=== PATIENT | female | born 1955 | race Caucasian/White ===

== ENCOUNTER → 2017-05-12 | Outpatient (CLI) | payer BC ==
--- NOTE | 2017-05-15 08:07 | MM ---
Reason for exam: follow-up at short interval from prior study. Last mammogram was performed 5 months ago. History: Patient is postmenopausal. Benign excisional biopsy of the right breast, November 09, 2004. Benign excisional biopsy of the right breast, March 27, 2002. Physical Findings: Nurse did not find any significant physical abnormalities on exam. MG Diagnostic Mammo LT w CAD CC, MLO, and ML view(s) were taken of the left breast. Prior study comparison: December 20, 2016, mammogram, performed at [facility]. November 25, 2016, mammogram, performed at [facility]. Nodular density left breast persists. Ultrasound is recommended. These results were verbally communicated with the patient and result sheet given to the patient on 05/12/17. ASSESSMENT: Incomplete: need additional imaging evaluation, BI-RAD 0 RECOMMENDATION: Ultrasound of the left breast.
--- NOTE | 2017-05-15 08:09 | USB ---
Reason for exam: additional evaluation requested from abnormal screening. History: Patient is postmenopausal. Benign excisional biopsy of the right breast, November 09, 2004. Benign excisional biopsy of the right breast, March 27, 2002. US Breast LT Left breast ultrasound includes all four quadrants, the retroareolar region and axilla. Finding demonstrates a 2mm questionable papilloma at the posterior nipple. These results were verbally communicated with the patient and result sheet given to the patient on 05/12/17. ASSESSMENT: Suspicious, BI-RAD 4 RECOMMENDATION: Ultrasound core biopsy of the left breast. Called with mammographic findings and has scheduled an appointment for the patient for 05/26/17 at 2:[address] Palma. PRELIMINARY REPORT CALLED AND FAXED TO DR. PALMA ON 05/15/17.
== END | disposition home or self-care (01) ==
LOC: RADMAMWWP 13:13
PROVIDERS: ATTEND Surgery
DX: R92.8 Other abnormal and inconclusive findings on diagnostic imaging of breast (principal)
CPT/HCPCS: 77065

== ENCOUNTER → 2017-06-20 | Day surgery (SDC) | payer BC ==
[2017-06-20 12:37] VITALS: TEMP 98.1; BMI 25.7
[2017-06-20 14:55] VITALS: BP 117/88; PULSE 72; RESP 15
--- NOTE | 2017-06-20 15:50 | USB ---
EXAMINATION TYPE: US biopsy breast VAD LT, MG diagnostic mammo LT wo CAD DATE OF EXAM: 06/20/2017 CLINICAL HISTORY: 61-year-old female [id number] Breast lump. TECHNIQUE: Ultrasound guided core biopsy of subareolar left breast. COMPARISON: 05/12/2017 FINDINGS: The procedure of ultrasound guided core biopsy was explained to the patient. Benefits, alternatives, and risks were discussed. An informed consent was then obtained. The patient was placed in supine positioning for imaging and for the procedure. The overlying skin was prepped and draped in usual sterile fashion. Lidocaine buffered with bicarbonate was used as anesthetic into the skin and subcutaneous tissue up to area of concern in the subareolar left breast. The small intraductal lesion was identified and targeted for biopsy. Under ultrasound guidance, a 13-gauge vacuum assisted Mammotome Elite biopsy gun device was used to obtain 4 core samples. Following this, a ribbon clip was left in lesion. The patient tolerated the procedure well without any immediate complication. The patient was kept in the radiology department for short stay after the procedure and then discharged home in stable condition. Postprocedure mammogram shows clip in the subareolar position. IMPRESSION: Successful, uncomplicated ultrasound guided core biopsy of the small subareolar intraductal lesion in the left breast, full pathology results to follow. Pathology Results: Benign BREAST, LEFT, CORE BIOPSY: FIBROCYSTIC CHANGES INCLUDING CYSTS, FIBROSIS, APOCRINE METAPLASIA, PAPILLARY USUAL TYPE DUCTAL HYPERPLASIA, COLUMNAR CELL HYPERPLASIA AND CALCIFICATIONS. Recommendation Follow up ultrasound of the left breast in 6 months. VEE
== END ==
LOC: RADUSWWP 11:59
PROVIDERS: ATTEND Surgery
DX: N60.32 Fibrosclerosis of left breast (principal); N60.82 Other benign mammary dysplasias of left breast; N60.92 Unspecified benign mammary dysplasia of left breast; R92.1 Mammographic calcification found on diagnostic imaging of breast
CPT/HCPCS: 88305; 77065; 19083; A4648; J2001

== ENCOUNTER → 2017-06-29 | Outpatient (CLI) | payer BC ==
--- NOTE | 2017-06-29 15:25 | P.PN ---
Progress Note - Text Progress Note Date: 06/29/17 The patient is a 61-year-old white female who presents with a status post ultrasound-guided core biopsy of the left breast. Pathology is benign. The patient states that she has some tenderness in the left breast. She had 28 after the biopsy. The biopsy site itself is nontender. She has no fever or chills. I have had a long discussion with the patient regarding the pathology results and the need for a repeat radiographic study in 6 months. Physical examination: Left breast: Some excoriation in the upper inner quadrant where the patient had T The puncture site from the biopsy is clean and dry and well healed No ecchymosis or erythema Lungs clear Heart regular rate and rhythm Impression/plan: 1. left breast core biopsy fibrocystic changes 2. Repeat left breast mammogram and ultrasound in 6 months time with appointment CC: Dr. Meneses
== END | disposition home or self-care (01) ==
LOC: WWCBREAST 14:59
PROVIDERS: ATTEND Surgery
DX: N64.4 Mastodynia (principal); Z53.9 Procedure and treatment not carried out, unspecified reason

== ENCOUNTER → 2018-02-20 | Outpatient (CLI) | payer BC ==
--- NOTE | 2018-02-22 10:26 | MM ---
Reason for exam: follow-up at short interval from prior study. Last mammogram was performed 8 months ago. History: Patient is postmenopausal. Benign US biopsy breast VAD LT of the left breast, June 20, 2017. Benign excisional biopsy of the right breast, November 09, 2004. Benign excisional biopsy of the right breast, March 27, 2002. Physical Findings: Nurse did not find any significant physical abnormalities on exam. MG 3D Diag Mammo W/Cad EVELYN Bilateral CC and MLO view(s) were taken. Prior study comparison: June 20, 2017, left breast MG diagnostic mammo LT wo CAD. May 12, 2017, left breast MG diagnostic mammo LT w CAD. There are scattered fibroglandular densities. Left chronic nodularity. Left central nodularity is smaller, subareolar focal asymmetry is unchanged from six months ago after biopsy. Right nodularity subareolar region slightly more pronounced, becomes less defined on 3D These results were verbally communicated with the patient and result sheet given to the patient on 02/20/18. ASSESSMENT: Incomplete: need additional imaging evaluation, BI-RAD 0 RECOMMENDATION: Ultrasound of both breasts.
--- NOTE | 2018-02-22 10:46 | USB ---
History: Patient is postmenopausal. Benign US biopsy breast VAD LT of the left breast, June 20, 2017. Benign excisional biopsy of the right breast, November 09, 2004. Benign excisional biopsy of the right breast, March 27, 2002. Physical Findings: Nurse did not find any significant physical abnormalities on exam. US Breast Limited BILAT Left complete breast ultrasound includes all four quadrants, the retroareolar region and axilla. Finding demonstrates a 6 x 2 mm oval area subareolar region with suggestion of an indwelling clip previously measuring 4 x 2 mm, a 6 month follow up is recommended. Right limited breast ultrasound including focal area of concern, retroareolar and axilla demonstrates a 0.8 x 0.5 x 0.6 irregular shaped solid hypoechoic lesion at 12 o'clock, this is suspicious. ASSESSMENT: Suspicious, BI-RAD 4 RECOMMENDATION: Ultrasound core biopsy of the right breast. Called Dr. Palma with mammographic findings and has scheduled an appointment for the patient for 03/09/18 at 11:00am with Dr. Palma for consultation only. Right ultrasound core biopsy is scheduled for 03/12/18 at 2:00pm. PRELIMINARY REPORT CALLED AND FAXED TO DR. PALMA ON
== END | disposition home or self-care (01) ==
LOC: RADMAMWWP 14:45
PROVIDERS: ATTEND Surgery
DX: R92.8 Other abnormal and inconclusive findings on diagnostic imaging of breast (principal)
CPT/HCPCS: 77062; 77066

== ENCOUNTER → 2018-03-09 | Outpatient (CLI) | payer BC ==
[2018-03-09 11:23] VITALS: BP 155/75; PULSE 90; RESP 18; TEMP 97.7; BMI 26.2
--- NOTE | 2018-03-09 11:46 | P.GSHP ---
History of Present Illness H&P Date: 03/09/18 Chief Complaint: abnormal ultrasound right breast Maryanne is a 62-year-old white female who comes in for breast evaluation. She is status post bilateral breast biopsies in the past each time the biopsies have been benign. Additionally she she had last year a needle biopsy of the left breast which was also benign. The patient is status post bilateral mammogram on 1818. After this was recommended that she have bilateral breast ultrasounds performed. Ultrasounds were performed on the same day and the right breast revealed a 8 mm irregular shaped solid lesion at 12:00 for which core biopsy was recommended. On the left breast no lesions of concern recommended biopsy were noted. The patient does not feel anything of concern in her breast. She has no nipple discharge of concern. She has had no recent trauma or infections of her breast. Family History: negative Hormonal History: Menarche: 16 Pregnancies: 2, first at the age of 32, 2 live births, did not breast-feed Menopause: Surgical hysterectomy which was total abdominal hysterectomy in her late 40s control pills: Approximately 1 year Hormones: Negative Past Surgical History 1. Right shoulder rotator cuff 2. Bilateral breast biopsies 3. Total abdominal hysterectomy 4. Tubal ligation 5. finger surgery Past Medical History: none Social History: smoke: 1/2 PPD for 45 years Alcohol: Weekends a few beers Drugs:negative - Constitutional Constitutional: Denies chills, Denies fever - EENT Eyes: denies blurred vision, denies pain Ears: deny: decreased hearing, tinnitus Ears, nose, mouth and throat: Denies headache, Denies sore throat - Breasts Breasts: bilateral: as per HPI - Cardiovascular Comment: irregular heart beat, follows with cardiology Cardiovascular: Denies chest pain, Denies shortness of breath - Respiratory Comment: smoker Respiratory: Denies cough, Denies 7 - Gastrointestinal Gastrointestinal: Denies abdominal pain, Denies diarrhea, Denies nausea, Denies vomiting - Genitourinary (Female) Genitourinary: Denies dysuria, Denies hematuria - Menstruation Menstruation: Reports post hysterectomy - Musculoskeletal Comment: back pain Musculoskeletal: Denies myalgias - Integumentary Integumentary: Denies pruritus, Denies rash - Neurological Neurological: Denies numbness, Denies weakness - Psychiatric Psychiatric: Denies anxiety, Denies depression - Endocrine Endocrine: Denies fatigue, Denies weight change - Hematologic/Lymphatic Comment: baby aspirin - Allergic/Immunologic Allergic/Immunologic: Reports as per HPI Past Medical History Past Medical History: Hyperlipidemia, Hypertension Additional Past Medical History / Comment(s): "irregular heart beat that caused elevated blood pressure" per pt History of Any Multi-Drug Resistant Organisms: None Reported Past Surgical History: Hysterectomy, Orthopedic Surgery Additional Past Surgical History / Comment(s): benign excisional biopsy right breast nov 09, 2004. benign excisional biopsy right breast mar 27, 2002. Past Anesthesia/Blood Transfusion Reactions: No Reported Reaction Past Psychological History: No Psychological Hx Reported Smoking Status: Current every day smoker Past Alcohol Use History: Occasional Past Drug Use History: None Reported Medications and Allergies Home Medications Medication Instructions Recorded Confirmed Type Aspirin 81 mg PO DAILY 06/08/17 02/27/18 History Metoprolol Tartrate 25 mg PO DAILY 06/08/17 02/27/18 History Simvastatin [Zocor] 20 mg PO DAILY 06/08/17 02/27/18 History Allergies Allergy/AdvReac Type Severity Reaction Status Date / Time No Known Allergies Allergy Verified 03/09/18 11:30 Surgical - Exam Vital Signs Temp Pulse Resp BP Pulse Ox 97.7 F 90 18 155/75 100 03/09/18 11:10 03/09/18 11:10 03/09/18 11:10 03/09/18 11:10 03/09/18 11:10 - General well developed, well nourished, no distress - Eyes normal ocular movement - ENT no hearing loss, no congestion - Neck no masses, trachea midline - Respiratory normal respiratory effort, clear to auscultation - Cardiovascular Rhythm: regular Heart Sounds: normal: S1, S2 - Abdomen Abdomen: soft, non tender, no guarding, no rigid, no rebound - Integumentary tattoo over left breast - Neurologic no disoriented, no combative - Musculoskeletal normal gait - Psychiatric oriented to time, oriented to person, oriented to place, speech is normal, memory intact Breast examination: Right breast: Multi-positional exam well-healed scars from prior biopsy no dominant masses or nodules of concern and no nipple discharge or changes of concern Right axilla: No adenopathy of concern Left breast : tattoo over the left chest wall, multi-positional exam no dominant masses or notches of concern Left axilla: No adenopathy of concern Results Mammogram and ultrasound reviewed with Dr. Louis Assessment and Plan Assessment: Impression: 1. Radiographic abnormality of the right breast revealing a 0.8 cm irregular solid lesion at 12:00 for which ultrasound core biopsy is recommended 2. Fibrocystic breast changes 3. Irregular heartbeat for which patient takes metipranolol 4. Back pain Plan: 1. Recommend ultrasound core biopsy of area of concern in the right breast 2. Medical management of medical conditions 3. Follow-up after ultrasound core biopsy CC: Dr. Meneses
== END | disposition home or self-care (01) ==
LOC: WWCWWP 10:47
PROVIDERS: ATTEND Surgery
DX: Z53.9 Procedure and treatment not carried out, unspecified reason (principal)

== ENCOUNTER → 2018-04-09 | Day surgery (SDC) | payer BC ==
[2018-04-09 11:26] VITALS: RESP 16; BMI 26.2
[2018-04-09 13:21] VITALS: BP 116/73; PULSE 65; TEMP 98.3
--- NOTE | 2018-04-09 16:46 | USB ---
EXAMINATION TYPE: US biopsy breast VAD RT DATE OF EXAM: 04/09/2018 CLINICAL HISTORY: R92.8 ABN MAMMO. TECHNIQUE: Ultrasound guided core biopsy of right breast. COMPARISON: Ultrasound 02/20/2018 FINDINGS: The procedure of ultrasound guided core biopsy was explained to the patient. Benefits, alternatives, and risks were discussed. An informed consent was then obtained. Timeout was performed. The patient was placed in supine positioning for imaging and for the procedure. The overlying skin was prepped and draped in usual sterile fashion. Lidocaine buffered with bicarbonate was used as anesthetic into the skin and subcutaneous tissue up to area of concern in the right breast. A tomas was made with surgical scalpel. Under ultrasound guidance, a 12-gauge vacuum assisted biopsy gun device was used to obtain 5 core samples. Following this, a biopsy wing clip was left in lesion. Patient tolerated procedure well. Patient was transferred to mammography for postprocedure replacement mammogram. Patient was released in stable condition having tolerated procedure well. IMPRESSION: 1. Successful ultrasound-guided core biopsy right breast. Recommendations: 1. Recommendations are pending pathology results. Pathology Results: Malignant RIGHT BREAST, ULTRASOUND GUIDED CORE BIOPSY: Microinvasive moderately differentiated ductal carcinoma (invasive tumor measures less than 1 mm). See Surgical Pathology Cancer Case Summary and Comment. Recommendation Surgical consult of the right breast. VEE
--- NOTE | 2018-04-10 08:14 | MM ---
Reason for exam: additional evaluation requested from abnormal screening. Last mammogram was performed 2 months ago. History: Patient is postmenopausal. Benign US biopsy breast VAD LT of the left breast, June 20, 2017. Benign excisional biopsy of the right breast, November 09, 2004. Benign excisional biopsy of the right breast, March 27, 2002. MG Diagnostic Mammo RT Wo CAD CC and MLO view(s) were taken of the right breast. Prior study comparison: February 20, 2018, bilateral MG 3d diag mammo w/cad EVELYN. June 20, 2017, left breast MG diagnostic mammo LT wo CAD. ASSESSMENT: Post procedure mammogram for marker placement RECOMMENDATION: Ultrasound of the right breast in 6 months. PENDING PATHOLOGY RESULTS.
== END | disposition home or self-care (01) ==
LOC: RADUSWWP 11:06
PROVIDERS: ATTEND Surgery
DX: C50.911 Malignant neoplasm of unspecified site of right female breast (principal)
CPT/HCPCS: 88305; 88342; 88341; 77065; 19083; A4648; J2001

== ENCOUNTER → 2018-04-19 | Outpatient (CLI) | payer BC ==
[2018-04-19 13:50] VITALS: BP 136/87; PULSE 99; RESP 18; TEMP 98.6; BMI 26.6
--- NOTE | 2018-04-20 09:54 | P.PN ---
Subjective Progress Note Date: 04/20/18 Principal diagnosis: Microinvasive right breast cancer Maryanne is a 62-year-old white female who is status post right prostatectomy core biopsy on [id number]. Her pathology revealed a microinvasive right breast cancer which was ER/WA positive and HER-2 negative. She is overall grade 2 and clinical no evidence of lymph node involvement. The patient has no family history of any cancer and is very concerned that the pathology was correct. She has requested if possible that a second opinion be obtained on the pathology results. We have contacted [facility] and are in the process of trying to obtain this information for the patient. The patient does not want to have the second opinion if insurance does not cover. The patient has no complaints directly related to the biopsy. Of concern is the fact that the lesion of interest is under the nipple periareolar complex. The lesion although close appears to be amiable to lumpectomy. I have had a long discussion with the patient as well as a second discussion which she brought back her regarding the biopsy results. We have talked about treatment options which would include possible lumpectomy, radiation therapy, sentinel node biopsy possible axillary node dissection. The concerned that the anterior margin may be very close to the periareolar complex and may necessitate a central lumpectomy with loss of the nipple areolar complex. The patient also was given the option of a mastectomy plus or minus immediate reconstruction. Objective - Vital Signs Vital signs: Vital Signs Temp 98.6 F 04/19/18 13:45 Pulse 99 04/19/18 13:45 Resp 18 04/19/18 13:45 BP 136/87 04/19/18 13:45 Pulse Ox 96 04/19/18 13:45 Intake & Output 04/19/18 04/20/18 04/20/18 18:59 06:59 18:59 Weight 67.132 kg - Exam BMI 26.6 - Constitutional General appearance: Present: average body habitus - EENT Eyes: Present: EOMI ENT: Present: hearing grossly normal - Neck Neck: Present: normal ROM - Respiratory Respiratory: - Cardiovascular Rhythm: regular Heart sounds: - Integumentary Integumentary: Present: normal turgor - Musculoskeletal Musculoskeletal: Present: gait normal - Psychiatric Psychiatric: Present: A&O x's 3, appropriate affect - Additional findings Additional findings: Core biopsy site right breast clean and dry Evidence of infection Mild ecchymosis Assessment and Plan Assessment: Impression: 1. Microinvasive cancer right breast 2. Fibrocystic breast changes 3. Irregular heartbeat 4. Back pain 5. Patient with concerns regarding pathology results 6. Irregular radiographic lesion on ultrasound I had a very extensive conversation lasting approximately 50 minutes with the patient and then with the patient and her who came back for a second visit regarding pathology findings and treatment options. The option of lumpectomy with radiation therapy, sentinel node biopsy, possible axillary node dissection, mastectomy plus or minus reconstruction well discussed with the patient and her . Additionally the patient is very concerned that because she has no family history of cancer that the pathologist may flatus and air and is requesting a second opinion on the pathology. However she only wants a second opinion if insurance will cover this. We are trying to find this information for the patient. At the present time the patient wishes to proceed with lumpectomy and sentinel node biopsy in the near future. She understands risks and benefits including bleeding and infection reaction to the anesthetic. She understands margins were positive, recommended that she have a repeat excision. She also understands lesion is in close proximity to the nipple areolar complex and the distort the area as well as have decreased sensation to this area. Plan: 1. We are attempting to see if her insurance will cover a second opinion on pathology results 2. Case to be presented at tumor board 3. Option of lumpectomy with sentinel node biopsy is patient's first choice at this time 4. Medical management of medical conditions CC:
== END | disposition home or self-care (01) ==
LOC: WWCWWP 13:35
PROVIDERS: ATTEND Surgery
DX: Z53.9 Procedure and treatment not carried out, unspecified reason (principal)

== ENCOUNTER → 2018-05-24 | Outpatient (CLI) | payer BC ==
[2018-05-24 13:23] VITALS: BP 121/85; PULSE 77; RESP 16; TEMP 98.2; BMI 26.5
--- NOTE | 2018-05-24 14:13 | P.GSHP ---
History of Present Illness H&P Date: 05/24/18 Chief Complaint: right breast invasive cancer Maryanne is a 62-year-old white female who presented for breast evaluation. She was status post bilateral breast biopsies in the past and the biopsies had always been benign. Additionally she had last year needle biopsy of the left breast which was also benign. The patient had a bilateral mammogram a 1818. Following this she underwent a bilateral ultrasound. By lateral ultrasound revealed an 8 mm irregular shaped solid lesion at 12:00 for which core biopsy was recommended. On the left breast no lesions of concern were identified for biopsy. The patient did not feel anything of concern in her breasts. She had no nipple discharge of concern. She had no recent trauma or infections in her breast. Pathology from the biopsy revealed a microinvasive moderately differentiated ductal carcinoma measuring less than 1 mm in size. The patient was concerned regarding the pathology and wished a second opinion which was obtained from [facility] and concurred with that diagnosis. The lesion was ER/NE positive and HER-2 negative. It was a grade 2 lesion. After long discussion the patient opted for a lumpectomy with sentinel node biopsy. Of concern is the location of the lesion in close proximity to the periareolar complex and the patient is aware of this and that the margins are positive she may require additional surgery. Additionally she is aware of the fact that the nipple May invert following the procedure. Family history: Negative Hormonal history: Menarche: 16 Pregnancies: To first at the age of 32, to rule out this did not breast-feed Menopause: Surgical hysterectomy which was total abdominal hysterectomy and her late 40s control pills: 1 year Hormones: Negative Past surgical history 1. Right shoulder rotator cuff 2. Bilateral breast biopsies 3. Total abdominal hysterectomy 4. Tubal ligation 5. Surgery on her finger Past medical history: Negative Social history: Smoked: Half a pack per day for 45 years Alcohol: Few beers on the weekend Drugs: Negative - Constitutional Constitutional: Denies chills, Denies fever - EENT Eyes: denies blurred vision, denies pain Ears: deny: decreased hearing, tinnitus Ears, nose, mouth and throat: Denies headache, Denies sore throat - Breasts Breasts: bilateral: as per HPI - Cardiovascular Cardiovascular: Reports irregular heart beat - Respiratory Comment: smoker Respiratory: Denies cough, Denies 7 - Gastrointestinal Gastrointestinal: Denies abdominal pain, Denies diarrhea, Denies nausea, Denies vomiting - Genitourinary (Female) Genitourinary: Denies dysuria, Denies hematuria - Menstruation Menstruation: Reports post hysterectomy - Musculoskeletal Musculoskeletal: Denies myalgias - Integumentary Integumentary: Denies pruritus, Denies rash - Neurological Neurological: Denies numbness, Denies weakness - Psychiatric Psychiatric: Denies anxiety, Denies depression - Endocrine Endocrine: Denies fatigue, Denies weight change - Hematologic/Lymphatic Comment: baby aspirin - Allergic/Immunologic Allergic/Immunologic: Reports as per HPI Past Medical History Past Medical History: Hyperlipidemia, Hypertension Additional Past Medical History / Comment(s): "irregular heart beat that caused elevated blood pressure" per pt History of Any Multi-Drug Resistant Organisms: None Reported Past Surgical History: Hysterectomy, Orthopedic Surgery Additional Past Surgical History / Comment(s): benign excisional biopsy right br [place] nov 09, 2004. benign excisional biopsy right breast mar 27, 2002. Past Anesthesia/Blood Transfusion Reactions: No Reported Reaction Past Psychological History: No Psychological Hx Reported Smoking Status: Light tobacco smoker Past Alcohol Use History: Occasional Past Drug Use History: None Reported Medications and Allergies Home Medications Medication Instructions Recorded Confirmed Type Aspirin 81 mg PO DAILY 06/08/17 05/24/18 History Metoprolol Tartrate 50 mg PO HS 06/08/17 05/24/18 History Simvastatin [Zocor] 20 mg PO HS 06/08/17 05/24/18 History Allergies Allergy/AdvReac Type Severity Reaction Status Date / Time No Known Allergies Allergy Verified 05/24/18 13:17 Surgical - Exam Vital Signs Temp Pulse Resp BP Pulse Ox 98.2 F 77 16 121/85 97 05/24/18 13:17 05/24/18 13:17 05/24/18 13:17 05/24/18 13:17 05/24/18 13:17 BMI 26.5 - General well developed, well nourished, no distress - Eyes normal ocular movement, no icteric - ENT no hearing loss, no congestion - Neck no masses, trachea midline - Respiratory normal respiratory effort, clear to auscultation - Cardiovascular Rhythm: regular Heart Sounds: normal: S1, S2 - Abdomen Abdomen: soft, non tender, no guarding, no rigid, no rebound - Integumentary normal turgor, no icterus - Neurologic no disoriented, no combative - Musculoskeletal normal gait, normal posture - Psychiatric oriented to time, oriented to person, oriented to place, speech is normal, memory intact Breast examination: Right breast: Slightly smaller than left breast Multiple positional exam no dominant masses or nodules of concern Right axilla: No adenopathy of concern Left breast colon tattoo over the chest multiple positional exam no dominant masses or nodules of concern Left axilla: No adenopathy of concern Results Mammogram and ultrasound results reviewed Assessment and Plan Assessment: Impression: 1. Microinvasive carcinoma right breast near the nipple areolar complex, approximately 0.8 cm 2. Fibrocystic breast changes 3. Irregular heartbeat awaiting cardiac clearance 4. Back pain Plan: 1. Right breast needle local excisional lumpectomy sentinel node biopsy 2. Medical management of medical conditions The skin benefits of operative procedures were discussed with the patient. The procedures range from needle local excisional biopsy to mastectomy plus or minus reconstruction. She also understands the need for a sentinel node biopsy plus or minus axillary node dissection. Of concern is the fact that the location of the lesion is in close proximity to the nipple areolar complex. I discussed the possibility of an inversion of the nipple and also the possibility of positive anterior margins. Despite this she wishes an attempt at a lumpectomy. Other risks including bleeding and infection reaction to the anesthetic were discussed with the patient. The plan is to proceed with a needle local excisional lumpectomy of the right breast as well as a sentinel node biopsy possible axillary node dissection. This is scheduled for the near future. Additionally the patient's pathology was reviewed by [facility] and they concurred with our diagnosis of a microinvasive ductal carcinoma. CC: Dr. Meneses
== END | disposition home or self-care (01) ==
LOC: WWCWWP 13:13
PROVIDERS: ATTEND Surgery
DX: Z53.9 Procedure and treatment not carried out, unspecified reason (principal)

== ENCOUNTER 2018-06-05 07:06 | Day surgery (SDC) | payer BC ==
[2018-06-04 08:18] VITALS: BMI 27.1
[~2018-06-05 07:06] MED LIST: DEXAMETHASONE SOD PHOSPHATE 10 MG/ML 1 ML VIAL IV ONE; HEPARIN SODIUM,PORCINE 5,000 UNIT/ML 1 ML VIAL SQ ONE; LACTATED RINGERS 1,000 ML IV SCH; MIDAZOLAM (PF) 2 MG/2 ML VIAL IV PRN; ONDANSETRON 4 MG/2 ML VIAL IVP ONE; Pre Op ABX Message 1 EACH MISC MISCELLANE ONE; SCOPOLAMINE 1.5MG/72HR PATCH TRANSDERM ONE
[2018-06-05] MEDS ORDERED: LIDOCAINE 1% 20 ML VIAL (10MG/ML) FOR IV START INTRADERMA ONE (07:44)
[2018-06-05] MEDS ORDERED: ALPRAZolam 0.5 MG TAB PO ONE (07:47)
[2018-06-05] MEDS ORDERED: SODIUM BICARB 4% 5 ML VIAL (0.48 MEQ/ML) MISCELLANE ONE (08:42)
[2018-06-05] MEDS ORDERED: LIDOCAINE 1% INJ 10MG/ML (20 ML MDV) SQ ONE (08:42)
--- NOTE | 2018-06-05 09:09 | NM ---
EXAMINATION TYPE: NM sentinel node injection DATE OF EXAM: 06/05/2018 COMPARISON: NONE HISTORY: RIGHT BREAST CA TECHNIQUE AND FINDINGS: The procedure of sentinel lymph node injection was explained to the patient. The benefits, alternatives, and risks were discussed. An informed consent was then obtained. Overlying skin is cleaned with sterile alcohol. Following this, 493 uCi Tc99m Tilmanocept was inject ed in the upper outer aspect of the right nipple intradermally. The patient tolerated the procedure well without any immediate complication. The patient was kept in the radiology department for short stay after the procedure and then taken to surgery for surgical p rocedure what is presumed intraoperative gamma probe will be used for sentinel lymph node detection. IMPRESSION: Right breast radiotracer injection for sentinel node localization as above.
[2018-06-05] MEDS ORDERED: LIDOCAINE 1% INJ 10MG/ML (20 ML MDV) ONE (09:49)
[2018-06-05] MEDS ORDERED: HYDROmorphone (PF) 1 MG/ML ONE (09:49)
[2018-06-05] MEDS ORDERED: SUCCINYLCHOLINE CHLORIDE 100 MG/5 ML SYR IV ONE (09:49)
[2018-06-05] MEDS ORDERED: MIDAZOLAM 2 MG/2 ML VIAL ONE (09:49)
[2018-06-05] MEDS ORDERED: fentaNYL (PF) 50 MCG/ML 2 ML AMP ONE (09:49)
[2018-06-05] MEDS ORDERED: ePHEDrine SULFATE/0.9% NACL/PF 50 MG/5 ML SYRINGE IV ONE (09:49)
[2018-06-05] MEDS ORDERED: PROPOFOL 10 MG/ML 20 ML VIAL IV ONE (09:49)
[2018-06-05] MEDS ORDERED: HEPARIN SODIUM,PORCINE 5,000 UNIT/ML 1 ML VIAL SQ ONE (09:54)
--- NOTE | 2018-06-05 10:01 | P.NAPBC ---
NAPBC Queries - NAPBC Queries Was patient's case review presented at [facility] tumor board? If no, comment.: Yes Was patient's pathology reviewed at [facility]? If no, comment.: Yes Was breast conservation surgery offered? If no, comment.: Yes Was sentinel node biopsy offered? If no, comment.: Yes Was diagnosis confirmed by percutaneous core biopsy? If no, comment.: Yes If mastectomy patient, was a preop referral to a reconstructive surgeon offered?: Yes Clinical Stage: T1N0M0 ER/SD+ Her2- Grade2, Stage IA
[2018-06-05] MEDS ORDERED: LACTATED RINGERS 1,000 ML IV ONE (10:05)
--- NOTE | 2018-06-05 11:54 | P.OP ---
Date of Procedure: 06/05/18 Preoperative Diagnosis: Right breast cancer Postoperative Diagnosis: Same Procedure(s) Performed: Right breast sentinel node biopsy, needle localization lumpectomy, on-call plastic tissue rearrangement, Biozorb placement 2x3 Anesthesia: GETA Surgeon: Grecia Palma Estimated Blood Loss (ml): 10 IV fluids (ml): 800 Pathology: other ([place] node, lumpectomy from breast specimen) Condition: stable Disposition: same day Indications for Procedure: Biopsy-proven right breast invasive ductal carcinoma Operative Findings: Dense breast tissue Description of Procedure: The patient is a 62-year-old white female diagnosed with a stage IA right breast invasive ductal carcinoma. The lesion is in proximity to the nipple areolar complex. The patient underwent an in injection for sentinel node biopsy. The patient was brought to the operating room and following induction of general anesthesia the axilla was interrogated with the neoprobe. There was noted to be radioactivity in the axilla and therefore blue dye was not injected. An incision was made in the axilla and radioactive lymph node was identified. Dissection was carried through the skin and subcutaneous tissue into the axillary tissue. The node was removed using the Harmonic scalpel. The 10 second radioactive count on the node was 33,582. The background count was approximately 33 at 10 seconds. The patient did not have other firm or worrisome lymph nodes palpable. This lymph node was sent for pathologic evaluation. The initial evaluation was that the node was negative, however when deeper sections were obtained there was noted to be a microscopic deposit of malignancy. Intraoperative consultation was obtained with radiation oncology and they felt we should not proceed with an axillary node dissection. The wound was well irrigated. The deep tissues were closed using 3-0 Vicryl suture. The skin was closed using a 4-0 Monocryl. The area of the breast was approached. The patient had prior incisions identified however we opted to use a circumareolar incision secondary to the location of the tumor and with the feeling this would get better cosmesis. Circumareolar incision was performed, approximately 8 mm to 1 cm distal to this incision a second incision was made. The skin was excised over this area de- epithelializing the area. An incision was then made in the de-epithelialized area and carried into the breast tissue. The shaft of the needle was identified. This was area was grasped using an Allis clamp. The tissues were dissected posteriorly to the pectoralis major muscle. Wide excision was performed around this area and dissection was carefully performed anteriorly up under the nipple areolar complex. Skin had been excised as well. The specimen was removed and upon examination there was some concern that the inferior aspect may be close to the area of tumor and new inferior as well as superior and medial margins were obtained. The specimen was painted for orientation. The specimen was sent to x-ray and it was confirmed that the area of concern had been removed. The wound was well irrigated. A 3 x 2 vials was placed and secured in place using 3-0 Vicryl sutures. Hypoplastic tissue rearrangement was performed. Superiorly approximately 3 x 3 cm area of tissue was mobilized and inferiorly approximately a 3 x 2 cm area of tissue was mobilized. The deeper tissues were closed using Vicryl suture. The dermis was closed using a 2-0 Prolene suture. A subcuticular 4-0 Monocryl was placed. A 5-0 nylon was then run on the skin. The patient tolerated the procedure in stable condition. The specimen was sent for pathology. All instrument and sponge counts were correct at the end of the case.
--- NOTE | 2018-06-05 11:56 | P.DS ---
Providers Attending physician: Grecia Palma Primary care physician: Nikolai Meneses Plan - Discharge Summary Discharge Rx Participant: Yes New Discharge Prescriptions: No Action Aspirin 81 mg PO DAILY Metoprolol Tartrate 25 mg PO BID Simvastatin [Zocor] 20 mg PO HS Amoxicillin 500 mg PO Q6HR Discharge Medication List Aspirin 81 mg PO DAILY 06/08/17 [History] Metoprolol Tartrate 25 mg PO BID 06/08/17 [History] Simvastatin [Zocor] 20 mg PO HS 06/08/17 [History] Amoxicillin 500 mg PO Q6HR 06/04/18 [History] Follow up Appointment(s)/Referral(s): Grecia Palma MD [STAFF PHYSICIAN] - 3 Days Activity/Diet/Wound Care/Special Instructions: Do not drive today Do not drive if taking narcotic pain medication Wear bra at all times May shower after 48 hours Discharge Disposition: HOME SELF-CARE
[2018-06-05 12:07] VITALS: TEMP 98.6
[2018-06-05] MEDS: HYDROmorphone 0.5 MG/0.5 ML SYRINGE IVP PRN ×2 (12:12→12:22)
[2018-06-05 12:22] VITALS: RESP 16
[2018-06-05 13:30] VITALS: BP 116/77; PULSE 89
--- NOTE | 2018-06-05 15:17 | MM ---
EXAMINATION TYPE: MG pre op needle loc RT, MG surgical specimen RT DATE OF EXAM: 06/05/2018 11:44 AM COMPARISON: NONE HISTORY: Intraductal carcinoma in situ right breast Informed consent was obtained and all the patient's questions were answered. The clip in question wa s localized mammographically. The standard sterile technique was utilized, as well as appropriate l ocal anesthesia with 1% Lidocaine and bicarbonate. Localization needle followed by placement of a gu idewire was performed under mammographic guidance. Verification images demonstrate appropriate deploy ment of the guidewire. The patient tolerated the procedure well and left the department in stable co ndition. Specimen radiograph demonstrates the clip in question to reside within the specimen. IMPRESSION: Successful needle localization and open biopsy right breast with pathology results jun Armstrong
== END 2018-06-05 13:33 | disposition home or self-care (01) ==
LOC: OR 07:06
PROVIDERS: ATTEND Surgery
DX: C50.911 Malignant neoplasm of unspecified site of right female breast (principal); Z79.82 Long term (current) use of aspirin; C77.9 Secondary and unspecified malignant neoplasm of lymph node, unspecified; N60.11 Diffuse cystic mastopathy of right breast; Z87.891 Personal history of nicotine dependence; E78.5 Hyperlipidemia, unspecified; I10 Essential (primary) hypertension; Z79.899 Other long term (current) drug therapy
CPT/HCPCS: 93005; 88331; 88307; 76098; 19281; 38792; 38525; 19301; A4648; A9520; J2250; J1644; J1100; J2405; J2001; J3010; J1170 ×2; J0330; J2704

== ENCOUNTER → 2018-06-07 | Outpatient (CLI) | payer BC ==
[2018-06-07 11:54] VITALS: BP 145/84; PULSE 66; RESP 18; TEMP 97.7; BMI 27.1
--- NOTE | 2018-06-07 12:19 | P.PN ---
Progress Note - Text Progress Note Date: 06/07/18 Patient status post right breast lumpectomy and SNB on 06-05-18. The patient has no complaints at this time. She comes in today for inspection of her incision. Physical exam: Lungs: Clear Heart: Regular rate and rhythm Incisions: Clean and dry, no evidence of any infection Mild discoloration of the skin at the medial aspect of the ross-aerolar incision, no infection, no erythema, no necrosis Impression: 1. Patient doing well postoperatively status post right breast lumpectomy, sentinel node biopsy Plan: 1. Patient to follow-up 06/21/2018. 2. Patient will call if any questions or concerns CC: Dr. Curtis
== END | disposition home or self-care (01) ==
LOC: WWCWWP 11:38
PROVIDERS: ATTEND Surgery
DX: Z53.9 Procedure and treatment not carried out, unspecified reason (principal)

== ENCOUNTER → 2018-06-21 | Outpatient (CLI) | payer BC ==
[2018-06-21 11:10] VITALS: BP 138/68; PULSE 70; RESP 16; TEMP 98.1; BMI 26.9
--- NOTE | 2018-06-21 11:45 | P.PN ---
Subjective Progress Note Date: 06/21/18 Principal diagnosis: Maryanne is a 62 year old white female status post right breast lumpectomy and Sentinal node biopsy on 06-05-18. She was noted on pathology to have negative margins. The tumor maximum size was 1.3 cm. She had 1 sentinel node positive for a 2.2 mm focus of ductal adenocarcinoma. She is doing well with respect to her incisions. She does note a small area of nodularity in the lateral aspect of the axillary incision which is believed to be the suture. She was seen by radiation oncology and was presented at tumor board and it was not felt that she needs further axillary surgery. She will receive radiation to the breast as well as to the axilla in view of the positive axillary node. Additionally she is recommended to be seen by medical oncology and has an appointment to see them in the near future. She is hormone receptor positive and will be recommended to undergo hormone therapy. Additionally secondary to the positive lymph node there is question as to whether she would benefit from chemotherapy. An Oncotype DX has been sent. PE: Lungs: Clear Heart: Regular rate and rhythm Incision: Clean and dry axilla and periareolar area there is some mild sloughing of the skin in the periareolar area but no evidence of any infection Impression/plan 1. Stage IA right breast cancer status post lumpectomy and sentinel node biopsy 2. Patient has been seen by radiation oncology 3. Oncotype DX sent awaiting the results 4. Ready for suture removal right breast 6. Appointment with medical oncology 7. follow up in three months or sooner if any questions CC: Dr. Meneses, Dr. Segura Objective - Vital Signs Vital signs: Vital Signs Temp 98.1 F 06/21/18 11:05 Pulse 70 06/21/18 11:05 Resp 16 06/21/18 11:05 BP 138/68 06/21/18 11:05 Pulse Ox 96 06/21/18 11:05 Intake & Output 06/20/18 06/21/18 06/21/18 18:59 06:59 18:59 Weight 66.678 kg
== END | disposition home or self-care (01) ==
LOC: WWCWWP 10:40
PROVIDERS: ATTEND Surgery
DX: Z53.9 Procedure and treatment not carried out, unspecified reason (principal)